=== PATIENT | female | born 1970 | race Caucasian/White ===

== ENCOUNTER 2016-08-26 02:03 | Emergency (ER) | payer OTHER ==
[~2016-08-26 02:03] MED LIST: ALPRAZOLAM0.5 MG PO; ASPIRIN81 MG PO; ATENOLOL50 MG PO; FLUOXETINE20 M3 PO; LEXAPRO10 MG PO
[2016-08-26 03:10] LABS: PLATELET COUNT 208 x10^3mcL (130-400); RED CELL DISTRIBUTION WIDTH 12.6 % (11.5-14.5)
[2016-08-26 03:20] LABS: UA SPECIFIC GRAVITY 1.015 (1.005-1.035); microscopic required? YES; urine erythrocyte TRACE (NEGATIVE)
[2016-08-26 03:26] LABS: BASOPHIL % 6.4 % (0-2)
[2016-08-26 03:45] LABS: CALCIUM 8.1 mg/dL (8.5-10.1); CARBON DIOXIDE 27.3 mmol/L (21-32); CHLORIDE SERUM 107 mmol/L (98-107); CREATININE SERUM 0.7 mg/dL (0.6-1.0); GFR1 > 60 mL/min; GLUCOSE SERUM 84 mg/dL (74-106); POTASSIUM SERUM 3.9 mmol/L (3.5-5.1); SODIUM SERUM 141 mmol/L (136-145)
[2016-08-26 03:49] LABS: ALBUMIN 3.4 g/dL (3.4-5.0); ALKALINE PHOSPHATASE 54 U/L (46-116); ALT/SGPT 14 U/L (14-59); AMYLASE 49 U/L (25-115); AST/SGOT 12 U/L (15-37); BILIRUBIN TOTAL 0.18 mg/dL (0.20-1.00); LIPASE 99 IU/L (73-393); TOTAL PROTEIN, SERUM 6.5 g/dL (6.4-8.2)
[2016-08-26 04:44] VITALS: BP 105/69
== END 2016-08-26 04:44 | disposition home or self-care (01) ==
LOC: ED 02:03
PROVIDERS: Emergency Medicine
DX: N39.0 Urinary tract infection, site not specified (principal); K59.00 Constipation, unspecified; M19.90 Unspecified osteoarthritis, unspecified site

== ENCOUNTER 2016-09-29 00:29 | Emergency (ER) | payer OTHER | END 2016-09-29 01:03 | disposition left against medical advice (07) | LOC: ED 00:29 | DX: Z53.21 Procedure and treatment not carried out due to patient leaving prior to being seen by health care provider (principal) ==

== ENCOUNTER 2016-11-10 05:55 | Emergency (ER) | payer OTHER ==
[2016-11-10 07:20] VITALS: BP 105/66
== END 2016-11-10 07:20 | disposition home or self-care (01) ==
LOC: ED 05:55
DX: R04.0 Epistaxis (principal); I10 Essential (primary) hypertension

== ENCOUNTER 2016-11-27 14:11 | Emergency (ER) | payer OTHER ==
[2016-11-27 15:14] LABS: BASOPHIL % 0.4 % (0-2); PLATELET COUNT 216 x10^3mcL (130-400); RED CELL DISTRIBUTION WIDTH 13.6 % (11.5-14.5)
[2016-11-27 15:30] LABS: CALCIUM 8.5 mg/dL (8.5-10.1); CARBON DIOXIDE 25.7 mmol/L (21-32); CHLORIDE SERUM 99 mmol/L (98-107); CREATININE SERUM 0.5 mg/dL (0.6-1.0); GFR1 > 60 mL/min; GLUCOSE SERUM 97 mg/dL (74-106); POTASSIUM SERUM 3.7 mmol/L (3.5-5.1); SODIUM SERUM 138 mmol/L (136-145)
[2016-11-27 15:32] LABS: ALKALINE PHOSPHATASE 58 U/L (46-116); ALT/SGPT 31 U/L (14-59); AST/SGOT 20 U/L (15-37); BILIRUBIN TOTAL 0.1 mg/dL (0.20-1.00); TOTAL PROTEIN, SERUM 6.6 g/dL (6.4-8.2)
[2016-11-27 15:33] LABS: ALBUMIN 3.3 g/dL (3.4-5.0)
[2016-11-27 16:50] VITALS: BP 105/60
== END 2016-11-27 16:50 | disposition home or self-care (01) ==
LOC: ED 14:11
PROVIDERS: Emergency Medicine
DX: R04.0 Epistaxis (principal); D64.9 Anemia, unspecified; J30.9 Allergic rhinitis, unspecified; F41.9 Anxiety disorder, unspecified; I47.1 Supraventricular tachycardia; M19.90 Unspecified osteoarthritis, unspecified site; Z79.82 Long term (current) use of aspirin; Z79.899 Other long term (current) drug therapy
CPT/HCPCS: 36415

== ENCOUNTER 2016-12-14 21:12 | Inpatient (IN) | payer OTHER ==
[~2016-12-14] VITALS: Ht 162.6 cm; Wt 72.1 kg
[2016-12-14] MEDS ORDERED: OMEPRAZOLE40 M1 PO (21:54)
[2016-12-14] MEDS ORDERED: CLONAZEPAM1 MG PO (21:54)
[2016-12-14 22:09] LABS: BASOPHIL % 0.6 % (0-2); PLATELET COUNT 280 x10^3mcL (130-400); RED CELL DISTRIBUTION WIDTH 13.7 % (11.5-14.5)
[2016-12-14 22:19] LABS: CALCIUM 8.4 mg/dL (8.5-10.1); CARBON DIOXIDE 23.5 mmol/L (21-32); CHLORIDE SERUM 107 mmol/L (98-107); CREATININE SERUM 0.7 mg/dL (0.6-1.0); GFR1 > 60 mL/min; GLUCOSE SERUM 101 mg/dL (74-106); POTASSIUM SERUM 3.9 mmol/L (3.5-5.1); SODIUM SERUM 142 mmol/L (136-145)
[2016-12-14 22:24] LABS: ALBUMIN 3.6 g/dL (3.4-5.0); ALKALINE PHOSPHATASE 64 U/L (46-116); ALT/SGPT 20 U/L (14-59); AST/SGOT 15 U/L (15-37); TOTAL PROTEIN, SERUM 7.7 g/dL (6.4-8.2)
[2016-12-14 22:35] LABS: CK-MB 0.8 ng/mL (0-3.6)
[2016-12-15 03:09] LABS: CHOLESTEROL/HDL RATIO 3.1; MAGNESIUM 2.1 mg/dL (1.8-2.4); PHOSPHOROUS 4.2 mg/dL (2.5-4.9)
[2016-12-15 03:16] LABS: T3 TOTAL 1.02 ng/mL
[2016-12-15 03:18] VITALS: BP 101/56
[2016-12-15 03:22] LABS: FREE T4 1.15 ng/dL (0.76-1.46); FREE THYROXINE INDEX 3.1 ug/dL (1.4-4.5); T4(THYROXINE) 9.1 ug/dL (4.7-13.3)
[2016-12-15 06:12] LABS: BASOPHIL % 0.7 % (0-2); PLATELET COUNT 240 x10^3mcL (130-400); RED CELL DISTRIBUTION WIDTH 14.1 % (11.5-14.5)
[2016-12-15 06:27] LABS: CALCIUM 8.5 mg/dL (8.5-10.1); CARBON DIOXIDE 22.8 mmol/L (21-32); CHLORIDE SERUM 109 mmol/L (98-107); CREATININE SERUM 0.7 mg/dL (0.6-1.0); GFR1 > 60 mL/min; GLUCOSE SERUM 88 mg/dL (74-106); POTASSIUM SERUM 4.1 mmol/L (3.5-5.1); SODIUM SERUM 142 mmol/L (136-145)
[2016-12-15 09:11] VITALS: BP 94/56
[2016-12-15 10:26] LABS: microscopic required? YES; urine erythrocyte 3+ (NEGATIVE)
[2016-12-15 13:17] VITALS: BP 98/53
[2016-12-15 16:30] VITALS: Ht 162.6 cm; Wt 72.1 kg
[2016-12-15 17:05] VITALS: BP 99/55
[2016-12-15 21:32] VITALS: BP 95/56
[2016-12-16 05:32] VITALS: BP 97/62
[2016-12-16 06:19] LABS: BASOPHIL % 0.8 % (0-2); PLATELET COUNT 195 x10^3mcL (130-400); RED CELL DISTRIBUTION WIDTH 14.1 % (11.5-14.5)
[2016-12-16 06:38] LABS: CALCIUM 7.9 mg/dL (8.5-10.1); CARBON DIOXIDE 21.2 mmol/L (21-32); CHLORIDE SERUM 113 mmol/L (98-107); CREATININE SERUM 0.7 mg/dL (0.6-1.0); GFR1 > 60 mL/min; GLUCOSE SERUM 88 mg/dL (74-106); POTASSIUM SERUM 3.9 mmol/L (3.5-5.1); SODIUM SERUM 145 mmol/L (136-145)
[2016-12-16 09:31] VITALS: BP 101/56
[2016-12-16 13:07] VITALS: BP 97/55
[2016-12-16 17:07] VITALS: BP 97/62
[2016-12-16 21:18] VITALS: BP 99/55
[2016-12-17 05:29] VITALS: BP 100/61
[2016-12-17 06:14] LABS: CARBON DIOXIDE 24.8 mmol/L (21-32); CHLORIDE SERUM 112 mmol/L (98-107); CREATININE SERUM 0.6 mg/dL (0.6-1.0); GFR1 > 60 mL/min; GLUCOSE SERUM 79 mg/dL (74-106); POTASSIUM SERUM 4.2 mmol/L (3.5-5.1); SODIUM SERUM 143 mmol/L (136-145)
[2016-12-17 08:25] VITALS: BP 98/59
[2016-12-17] MEDS ORDERED: BACTRIM DS1 TAB PO (11:00)
[2016-12-17 12:57] VITALS: BP 98/59
[2016-12-17 13:04] VITALS: BP 98/59
[2016-12-17] MEDS ORDERED: BACO TOP (14:19)
[2016-12-17] MEDS ORDERED: HIBICLENS118 ML TOP (14:19)
== END 2016-12-17 14:00 | disposition home or self-care (01) | DRG 243 ==
LOC: ED 21:12 → DU 12-15 02:15
PROVIDERS: Emergency Medicine; Family Medicine; ADMIT Student in an Organized Health Care Education/Training Program
DX: K21.9 Gastro-esophageal reflux disease without esophagitis (principal); E87.8 Other disorders of electrolyte and fluid balance, not elsewhere classified; I47.1 Supraventricular tachycardia; D64.9 Anemia, unspecified; S01.81XA Laceration without foreign body of other part of head, initial encounter; N39.0 Urinary tract infection, site not specified; F32.9 Major depressive disorder, single episode, unspecified; G89.29 Other chronic pain; M54.9 Dorsalgia, unspecified; W01.0XXA Fall on same level from slipping, tripping and stumbling without subsequent striking against object, initial encounter; F41.9 Anxiety disorder, unspecified; M19.90 Unspecified osteoarthritis, unspecified site; Z79.82 Long term (current) use of aspirin; Z68.27 Body mass index [BMI] 27.0-27.9, adult; Y93.89 Activity, other specified; Y92.89 Other specified places as the place of occurrence of the external cause; Y99.8 Other external cause status; Z95.1 Presence of aortocoronary bypass graft; Z79.899 Other long term (current) drug therapy; Z82.49 Family history of ischemic heart disease and other diseases of the circulatory system
CPT/HCPCS: 83880; 84439; J0696; J2270; J2405; J7030; Q0092

== ENCOUNTER 2017-01-28 11:58 | Emergency (ER) | payer OTHER ==
[~2017-01-28] VITALS: Ht 162.6 cm; Wt 68.0 kg
[~2017-01-28 11:58] MED LIST changes: +BACO TOP; +BACTRIM DS1 TAB PO; +CLONAZEPAM1 MG PO; +HIBICLENS118 ML TOP; +OMEPRAZOLE40 M1 PO
[2017-01-28 12:43] LABS: BASOPHIL % 0.3 % (0-2); PLATELET COUNT 276 x10^3mcL (130-400)
[2017-01-28 12:52] LABS: CALCIUM 8.8 mg/dL (8.5-10.1); CARBON DIOXIDE 27.8 mmol/L (21-32); CHLORIDE SERUM 106 mmol/L (98-107); CREATININE SERUM 0.8 mg/dL (0.6-1.0); GFR1 > 60 mL/min; GLUCOSE SERUM 86 mg/dL (74-106); POTASSIUM SERUM 3.9 mmol/L (3.5-5.1); RED CELL DISTRIBUTION WIDTH 14.9 % (11.5-14.5); SODIUM SERUM 140 mmol/L (136-145)
[2017-01-28 12:59] LABS: ALBUMIN 3.5 g/dL (3.4-5.0); ALKALINE PHOSPHATASE 60 U/L (46-116); ALT/SGPT 17 U/L (14-59); AST/SGOT 12 U/L (15-37); BILIRUBIN TOTAL 0.2 mg/dL (0.20-1.00); TOTAL PROTEIN, SERUM 7.5 g/dL (6.4-8.2)
[2017-01-28 13:21] LABS: AMPHETAMINE QUAL UR NONE DETECTED (NEG <=1000)
[2017-01-28 16:03] VITALS: BP 110/64
== END 2017-01-28 16:04 | disposition home or self-care (01) ==
LOC: ED 11:58
PROVIDERS: Emergency Medicine
DX: R45.851 Suicidal ideations (principal); I10 Essential (primary) hypertension; M19.90 Unspecified osteoarthritis, unspecified site
CPT/HCPCS: 36415; G0480

== ENCOUNTER 2017-05-13 01:17 | Emergency (ER) | payer OTHER ==
[2017-05-13 01:18] VITALS: BP 99/77
== END 2017-05-13 03:50 | disposition left against medical advice (07) ==
LOC: ED 01:17
DX: Z53.21 Procedure and treatment not carried out due to patient leaving prior to being seen by health care provider (principal)

== ENCOUNTER 2017-05-25 04:02 | Emergency (ER) | payer OTHER ==
[2017-05-25 06:46] VITALS: BP 100/89
== END 2017-05-25 06:46 | disposition home or self-care (01) ==
LOC: ED 04:02
DX: J20.9 Acute bronchitis, unspecified (principal); I10 Essential (primary) hypertension; M19.90 Unspecified osteoarthritis, unspecified site; Z95.1 Presence of aortocoronary bypass graft

== ENCOUNTER 2017-06-06 04:04 | Emergency (ER) | payer OTHER ==
[~2017-06-06] VITALS: Ht 160 cm; Wt 68.7 kg
[2017-06-06 04:17] VITALS: Ht 160 cm; Wt 68.7 kg
[2017-06-06 05:20] LABS: BASOPHIL % 0.4 % (0-2); PLATELET COUNT 304 x10^3mcL (130-400)
[2017-06-06 05:24] LABS: RED CELL DISTRIBUTION WIDTH 14.6 % (11.5-14.5)
[2017-06-06 05:28] LABS: CALCIUM 8.5 mg/dL (8.5-10.1); CARBON DIOXIDE 30.1 mmol/L (21-32); CHLORIDE SERUM 102 mmol/L (98-107); CREATININE SERUM 0.7 mg/dL (0.6-1.0); GFR1 > 60 mL/min; GLUCOSE SERUM 106 mg/dL (74-106); POTASSIUM SERUM 3.7 mmol/L (3.5-5.1); SODIUM SERUM 139 mmol/L (136-145)
[2017-06-06 05:33] LABS: ALBUMIN 3.2 g/dL (3.4-5.0); ALKALINE PHOSPHATASE 62 U/L (46-116); ALT/SGPT 16 U/L (14-59); AST/SGOT 12 U/L (15-37); BILIRUBIN TOTAL 0.19 mg/dL (0.20-1.00); LIPASE 73 IU/L (73-393)
[2017-06-06 06:18] VITALS: BP 109/65
== END 2017-06-06 07:10 | disposition home or self-care (01) ==
LOC: ED 04:04
PROVIDERS: Emergency Medicine
DX: R10.9 Unspecified abdominal pain (principal); R11.0 Nausea; I10 Essential (primary) hypertension; M19.90 Unspecified osteoarthritis, unspecified site; G89.29 Other chronic pain
CPT/HCPCS: J1170; J1200; J2405; J2765; J7030

== ENCOUNTER 2017-08-22 01:58 | Emergency (ER) | payer OTHER ==
[~2017-08-22] VITALS: Ht 160 cm; Wt 68.7 kg
[2017-08-22 02:07] VITALS: Ht 160 cm; Wt 68.7 kg
[2017-08-22 05:09] VITALS: BP 115/64
== END 2017-08-22 05:09 | disposition home or self-care (01) ==
LOC: ED 01:58
DX: R51 Headache (principal); I10 Essential (primary) hypertension; M19.90 Unspecified osteoarthritis, unspecified site
CPT/HCPCS: J0780; J1200; J1885; J7030

== ENCOUNTER 2017-11-25 01:03 | Emergency (ER) | payer OTHER ==
[~2017-11-25] VITALS: Ht 160 cm; Wt 69.4 kg
[2017-11-25 01:21] VITALS: BP 117/78; Ht 160 cm; Wt 69.4 kg
== END 2017-11-25 02:40 | disposition home or self-care (01) ==
LOC: ED 01:03
DX: G89.29 Other chronic pain (principal); I10 Essential (primary) hypertension

== ENCOUNTER 2018-02-10 16:17 | Emergency (ER) | payer OTHER ==
[2018-02-10 17:15] LABS: PLATELET COUNT 281 x10^3mcL (130-400)
[2018-02-10 17:16] LABS: RED CELL DISTRIBUTION WIDTH 16.5 % (11.5-14.5)
[2018-02-10 17:25] LABS: CALCIUM 8.4 mg/dL (8.5-10.1); CHLORIDE SERUM 107 mmol/L (98-107); CREATININE SERUM 0.7 mg/dL (0.6-1.0); GFR1 > 60 mL/min; GLUCOSE SERUM 89 mg/dL (74-106); POTASSIUM SERUM 3.4 mmol/L (3.5-5.1); SODIUM SERUM 140 mmol/L (136-145)
[2018-02-10 17:30] LABS: ALKALINE PHOSPHATASE 66 U/L (46-116); ALT/SGPT 16 U/L (14-59); AST/SGOT 16 U/L (15-37); BILIRUBIN TOTAL 0.15 mg/dL (0.20-1.00); TOTAL PROTEIN, SERUM 7.4 g/dL (6.4-8.2)
[2018-02-10 17:35] LABS: ALBUMIN 3.2 g/dL (3.4-5.0)
[2018-02-10 18:00] VITALS: BP 109/69
== END 2018-02-10 18:36 | disposition home or self-care (01) ==
LOC: ED 16:17
PROVIDERS: Emergency Medicine
DX: N93.8 Other specified abnormal uterine and vaginal bleeding (principal); D25.9 Leiomyoma of uterus, unspecified; D64.9 Anemia, unspecified; I49.9 Cardiac arrhythmia, unspecified; I10 Essential (primary) hypertension; F41.9 Anxiety disorder, unspecified; Z98.890 Other specified postprocedural states
CPT/HCPCS: 36415; Q0092

== ENCOUNTER 2018-04-07 02:01 | Emergency (ER) | payer OTHER ==
[~2018-04-07] VITALS: Ht 157.5 cm; Wt 71.2 kg
[2018-04-07 02:15] VITALS: Ht 157.5 cm; Wt 71.2 kg
[2018-04-07 04:49] VITALS: BP 119/76
== END 2018-04-07 04:49 | disposition home or self-care (01) ==
LOC: ED 02:01
DX: M51.36 Other intervertebral disc degeneration, lumbar region (principal); I10 Essential (primary) hypertension; F41.9 Anxiety disorder, unspecified; M19.90 Unspecified osteoarthritis, unspecified site; F32.9 Major depressive disorder, single episode, unspecified; Z86.2 Personal history of diseases of the blood and blood-forming organs and certain disorders involving the immune mechanism; Z98.890 Other specified postprocedural states
CPT/HCPCS: J1885; J2060; J2270

== ENCOUNTER 2018-07-11 01:11 | Inpatient (IN) | payer OTHER ==
[~2018-07-11] VITALS: Ht 162.6 cm; Wt 72.1 kg
[2018-07-11 01:17] VITALS: Ht 162.6 cm; Wt 72.1 kg
--- NOTE | 2018-07-11 01:26 | NUR ---
PT. IN ED WITH C/O UPPER BACK PAIN OFF AND ON X3WKS. STATES SHE STARTED FEELING SOB AND HAVING TINGLING TO LEFT ARM SINCE YESTERDAY. REPORTS UPPER BACK PAIN IS WORSE WHEN EXERCISING. ALSO, REPORTS FEELING DIZZY AND DIAPHORETIC YESTERDAY. PT. AAOX4, TALKING AND RESPONDING APPROPRIATELY, BREATHING EQUAL AND UNLABORED. DR. EAST AT BEDSIDE TO PERFORM MSE.
--- NOTE | 2018-07-11 01:52 | NUR ---
PT. AMBUALTED TO RESTROOM WITH STEADY GAIT.
--- NOTE | 2018-07-11 02:01 | NUR ---
PT. INFORMED OF THE SIDE EFFECTS OF NORCO INCLUDING FEELING DROWSY, STATES HER WILL DRIVE HER HOME.
[2018-07-11 02:06] LABS: CALCIUM 8.6 mg/dL (8.5-10.1); CARBON DIOXIDE 22.8 mmol/L (21-32); CHLORIDE SERUM 105 mmol/L (98-107); CREATININE SERUM 0.6 mg/dL (0.6-1.0); GFR1 > 60 mL/min; GLUCOSE SERUM 91 mg/dL (74-106); POTASSIUM SERUM 3.5 mmol/L (3.5-5.1); SODIUM SERUM 139 mmol/L (136-145)
[2018-07-11 02:12] LABS: ALBUMIN 3.4 g/dL (3.4-5.0); ALKALINE PHOSPHATASE 65 U/L (46-116); ALT/SGPT 18 U/L (14-59); AST/SGOT 14 U/L (15-37); BILIRUBIN TOTAL 0.15 mg/dL (0.20-1.00); LIPASE 113 IU/L (73-393); TOTAL PROTEIN, SERUM 7.4 g/dL (6.4-8.2)
--- NOTE | 2018-07-11 02:43 | NUR ---
PT. REPORTS BACK PAIN IS 6/10 AFTER NORCO. LAYING ON GURNEY IN POSITION OF COMFORT, NOT IN ANY APPARENT DISTRES. WILL CONTINUE TO MONITOR.
[2018-07-11 02:48] LABS: BASOPHIL % 0.5 % (0-2); PLATELET COUNT 280 x10^3mcL (130-400)
[2018-07-11 02:59] LABS: RED CELL DISTRIBUTION WIDTH 17.9 % (11.5-14.5)
--- NOTE | 2018-07-11 04:40 | NUR ---
PT. LAYING ON GURNEY IN POSITION OF COMFORT, SKIN WARM, DRY AND PINK. BREATHING E/U. NOT IN ANY APPARENT DISTRESS. FAMILY AT BEDSIDE.
--- NOTE | 2018-07-11 06:00 | NUR ---
PT. SITTING UP IN [facility], NOT IN ANY APPARENT DISTRESS AT THIS TIME. CALL LIGHT IN REACH. WILL CONTINUE TO MONITOR.
--- NOTE | 2018-07-11 07:15 | NUR ---
REPORT GIVEN TO GAYE HOWARD FOR FURTHER CARE OF PATIENT. ALL QUESTIONS ANSWERED.
[2018-07-11] MEDS ORDERED: TOPROL XL25 MG PO (07:34)
[2018-07-11] MEDS ORDERED: CLONAZEPAM0.5 MG PO ×2 (07:34→07:35)
[2018-07-11] MEDS ORDERED: PRILOSEC OTC20 M1 PO (07:35)
[2018-07-11 07:51] LABS: T3 TOTAL 1.3 ng/mL
[2018-07-11 07:56] LABS: CHOLESTEROL/HDL RATIO 3.6; MAGNESIUM 2.2 mg/dL (1.8-2.4); PHOSPHOROUS 4.4 mg/dL (2.5-4.9)
--- NOTE | 2018-07-11 08:00 | NUR ---
REPORT GIVEN TO EMILIE HOWARD
[2018-07-11 08:01] LABS: FREE T4 0.87 ng/dL (0.76-1.46); FREE THYROXINE INDEX 2.4 ug/dL (1.4-4.5); T4(THYROXINE) 7.9 ug/dL (4.7-13.3)
--- NOTE | 2018-07-11 08:44 | NUR ---
RECEIVED PT FROM ER. ADMISSION ASSESSEMENT AND HISTORY IS COLLECTED AND WILL DOCUMENT. PT STATED BACK PAIN,11/17. NO NUMBNESS OR TINGLING THIS TIME. WILL MEDICATE PT WITH PRN PAIN MED NATY AVAILABLE. SAFTEY PRECAUTIONS ARE IN PLACE. WILL MONITOR.
--- NOTE | 2018-07-11 10:12 | NUR ---
PT RESTING IN BED COMFORTABLY. DENIES ANY PAIN THIS TIME. STABLE.
[2018-07-11 10:24] VITALS: BP 113/68
[2018-07-11 11:24] VITALS: BP 103/60
[2018-07-11 14:24] VITALS: BP 112/63
[2018-07-11] MEDS ORDERED: PREDNISONE50 MG PO (15:26)
--- NOTE | 2018-07-11 15:30 | NUR ---
AWARE ABOUT CT RESULTS AND HE SAID HE IS GOING TO DISCHARGE PT, HE SPOKE WITH PT ABOUT DISCHARGE. PT IS STABLE. DENIES PAIN THIS TIME. PT SAID SHE TAKES NORCO AT HOME IF SHE HAS PAIN. SAID HE IS NOT GOING TO GIVE ANYMORE PAIN MED TO TAKE AT HOME, ALSO HE SAID PT CAN TAKE MOTRIN OR TYLENOL PO AT HOME, PT IS AWARE.
[2018-07-11 16:42] VITALS: BP 112/63
--- NOTE | 2018-07-11 17:55 | NUR ---
PT'S SON CAME TO [employer] ATTENDANT PT. DISCHARGE INSTRUCTIONS AND PRESCRIPTION GIVEN. PB SIGNED AND SENT WITH PT. IV AND TELE REMOVED. PT DENIES PAIN. PROJECT MANAGEMENT PROFESSIONAL WHEELED PT DOWN TO LOBBY ACCOMPANIED WITH PT'S SON. PT DC HOME.
== END 2018-07-11 18:19 | disposition home or self-care (01) | DRG 144 ==
LOC: ED 01:11 → DU 06:36
PROVIDERS: Emergency Medicine; ADMIT General Practice
DX: R06.03 Acute respiratory distress (principal); M41.84 Other forms of scoliosis, thoracic region; M54.9 Dorsalgia, unspecified; E78.5 Hyperlipidemia, unspecified; F32.9 Major depressive disorder, single episode, unspecified; F41.9 Anxiety disorder, unspecified; I10 Essential (primary) hypertension; G89.29 Other chronic pain; Z82.49 Family history of ischemic heart disease and other diseases of the circulatory system; Z79.899 Other long term (current) drug therapy
CPT/HCPCS: 84439; 85378; J2270; J2405; J7030; J7620; Q0092

== ENCOUNTER 2019-01-04 03:16 | Emergency (ER) | payer OTHER ==
[~2019-01-04] VITALS: Ht 160 cm; Wt 67.1 kg
[~2019-01-04 03:16] MED LIST changes: +CLONAZEPAM0.5 MG PO; +PREDNISONE50 MG PO; +PRILOSEC OTC20 M1 PO; +TOPROL XL25 MG PO
[2019-01-04 03:18] VITALS: Ht 160 cm; Wt 67.1 kg
[2019-01-04 05:17] LABS: BASOPHIL % 0.5 % (0-2); PLATELET COUNT 262 x10^3mcL (130-400)
[2019-01-04 05:19] LABS: RED CELL DISTRIBUTION WIDTH 16.9 % (11.5-14.5)
[2019-01-04 05:21] LABS: CALCIUM 8.1 mg/dL (8.5-10.1); CARBON DIOXIDE 24.3 mmol/L (21-32); CHLORIDE SERUM 101 mmol/L (98-107); CREATININE SERUM 0.7 mg/dL (0.6-1.0); GFR1 > 60 mL/min; GLUCOSE SERUM 99 mg/dL (74-106); POTASSIUM SERUM 3.8 mmol/L (3.5-5.1); SODIUM SERUM 137 mmol/L (136-145)
[2019-01-04 05:23] LABS: ALBUMIN 3.5 g/dL (3.4-5.0); ALKALINE PHOSPHATASE 61 U/L (46-116); ALT/SGPT 23 U/L (14-59); AMYLASE 48 U/L (25-115); AST/SGOT 15 U/L (15-37); BILIRUBIN TOTAL 0.4 mg/dL (0.20-1.00); LIPASE 76 IU/L (73-393); TOTAL PROTEIN, SERUM 7.6 g/dL (6.4-8.2)
[2019-01-04 07:32] VITALS: BP 121/79
== END 2019-01-04 07:32 | disposition home or self-care (01) ==
LOC: ED 03:16
PROVIDERS: Emergency Medicine
DX: K57.30 Diverticulosis of large intestine without perforation or abscess without bleeding (principal); I10 Essential (primary) hypertension; I49.9 Cardiac arrhythmia, unspecified; F41.9 Anxiety disorder, unspecified; F32.9 Major depressive disorder, single episode, unspecified; Z98.890 Other specified postprocedural states; Z86.2 Personal history of diseases of the blood and blood-forming organs and certain disorders involving the immune mechanism
CPT/HCPCS: J2405; J7030

== ENCOUNTER 2019-02-26 01:26 | Emergency (ER) | payer OTHER ==
[~2019-02-26] VITALS: Ht 160 cm; Wt 71.2 kg
[2019-02-26 01:39] VITALS: Ht 160 cm; Wt 71.2 kg
[2019-02-26 02:29] LABS: BASOPHIL % 0.6 % (0-2); PLATELET COUNT 240 x10^3mcL (130-400)
[2019-02-26 02:35] LABS: RED CELL DISTRIBUTION WIDTH 18.2 % (11.5-14.5)
[2019-02-26 02:52] LABS: CALCIUM 8.4 mg/dL (8.5-10.1); CARBON DIOXIDE 23.9 mmol/L (21-32); CHLORIDE SERUM 107 mmol/L (98-107); CREATININE SERUM 0.7 mg/dL (0.6-1.0); GFR1 > 60 mL/min; GLUCOSE SERUM 97 mg/dL (74-106); SODIUM SERUM 140 mmol/L (136-145)
[2019-02-26 02:57] LABS: ALKALINE PHOSPHATASE 74 U/L (46-116); ALT/SGPT 16 U/L (14-59); AMYLASE 40 U/L (25-115); AST/SGOT 17 U/L (15-37); BILIRUBIN TOTAL 0.22 mg/dL (0.20-1.00); LIPASE 59 IU/L (73-393); TOTAL PROTEIN, SERUM 7.2 g/dL (6.4-8.2)
[2019-02-26 03:01] LABS: ALBUMIN 3.1 g/dL (3.4-5.0)
[2019-02-26 07:17] VITALS: BP 134/78
== END 2019-02-26 07:17 | disposition home or self-care (01) ==
LOC: ED 01:26
PROVIDERS: Student in an Organized Health Care Education/Training Program
DX: K57.92 Diverticulitis of intestine, part unspecified, without perforation or abscess without bleeding (principal)
CPT/HCPCS: J2270; J2405; Q9967

== ENCOUNTER 2019-09-07 00:06 | Emergency (ER) | payer OTHER ==
[~2019-09-07] VITALS: Ht 170.2 cm; Wt 71.7 kg
[2019-09-07 01:18] VITALS: BP 101/70
== END 2019-09-07 01:18 | disposition home or self-care (01) ==
LOC: ED 00:06
DX: M54.6 Pain in thoracic spine (principal); M54.5 Low back pain; G89.29 Other chronic pain; I10 Essential (primary) hypertension; I49.9 Cardiac arrhythmia, unspecified; Z86.2 Personal history of diseases of the blood and blood-forming organs and certain disorders involving the immune mechanism; Z98.890 Other specified postprocedural states
CPT/HCPCS: J1885; Q0092

== ENCOUNTER 2019-11-05 23:54 | Inpatient (IN) | payer OTHER ==
[~2019-11-05] VITALS: Ht 157.5 cm; Wt 73.0 kg
[2019-11-06 00:05] VITALS: Ht 157.5 cm; Wt 73.0 kg
[2019-11-06 00:16] LABS: BASOPHIL % 0.5 % (0-2); PLATELET COUNT 258 x10^3mcL (130-400)
[2019-11-06 00:20] LABS: RED CELL DISTRIBUTION WIDTH 17.6 % (11.5-14.5)
[2019-11-06 00:34] LABS: CALCIUM 7.7 mg/dL (8.5-10.1); CARBON DIOXIDE 23.8 mmol/L (21-32); CHLORIDE SERUM 106 mmol/L (98-107); CREATININE SERUM 0.6 mg/dL (0.6-1.0); GFR1 > 60 mL/min; GLUCOSE SERUM 109 mg/dL (74-106); POTASSIUM SERUM 3.6 mmol/L (3.5-5.1); SODIUM SERUM 137 mmol/L (136-145)
[2019-11-06 00:38] LABS: ALBUMIN 3.1 g/dL (3.4-5.0); ALT/SGPT 15 U/L (14-59); AST/SGOT 14 U/L (15-37); BILIRUBIN TOTAL 0.2 mg/dL (0.20-1.00); TOTAL PROTEIN, SERUM 6.6 g/dL (6.4-8.2)
[2019-11-06 01:17] LABS: ALKALINE PHOSPHATASE 70 U/L (46-116)
[2019-11-06] MEDS ORDERED: BANOPHEN50 MG PO (04:30)
[2019-11-06 06:07] VITALS: BP 108/66
[2019-11-06 08:37] VITALS: BP 101/67
[2019-11-06 09:26] LABS: MAGNESIUM 1.9 mg/dL (1.8-2.4)
[2019-11-06 12:41] VITALS: BP 102/63
[2019-11-06 16:36] VITALS: BP 105/65
== END 2019-11-06 16:54 | disposition home or self-care (01) | DRG 203 ==
LOC: ED 23:54 → DU 11-06 04:28
PROVIDERS: Emergency Medicine; ADMIT Internal Medicine Pulmonary Disease; ATTEND Internal Medicine Pulmonary Disease
DX: R07.89 Other chest pain (principal); D64.9 Anemia, unspecified; F32.9 Major depressive disorder, single episode, unspecified; F41.9 Anxiety disorder, unspecified; I10 Essential (primary) hypertension; F29 Unspecified psychosis not due to a substance or known physiological condition; M19.90 Unspecified osteoarthritis, unspecified site
CPT/HCPCS: 36600; 83880; G0378; J1885; J2270; Q0092

== ENCOUNTER 2019-11-25 00:58 | Emergency (ER) | payer OTHER ==
[~2019-11-25] VITALS: Ht 157.5 cm; Wt 70.8 kg
[~2019-11-25 00:58] MED LIST changes: +BANOPHEN50 MG PO
[2019-11-25 01:38] LABS: BASOPHIL % 1.4 % (0-2); PLATELET COUNT 331 x10^3mcL (130-400)
[2019-11-25 01:39] LABS: RED CELL DISTRIBUTION WIDTH 15.9 % (11.5-14.5)
[2019-11-25 01:46] LABS: CALCIUM 8.4 mg/dL (8.5-10.1); CARBON DIOXIDE 23.2 mmol/L (21-32); CHLORIDE SERUM 107 mmol/L (98-107); CREATININE SERUM 0.9 mg/dL (0.6-1.0); GFR1 > 60 mL/min; GLUCOSE SERUM 100 mg/dL (74-106); POTASSIUM SERUM 3.9 mmol/L (3.5-5.1); SODIUM SERUM 140 mmol/L (136-145)
[2019-11-25 01:50] LABS: ALKALINE PHOSPHATASE 72 U/L (46-116); ALT/SGPT 43 U/L (14-59); AST/SGOT 20 U/L (15-37); BILIRUBIN TOTAL 0.17 mg/dL (0.20-1.00); TOTAL PROTEIN, SERUM 6.6 g/dL (6.4-8.2)
[2019-11-25 01:53] LABS: ALBUMIN 3.1 g/dL (3.4-5.0)
[2019-11-25 05:10] VITALS: BP 102/57
== END 2019-11-25 05:15 | disposition home or self-care (01) ==
LOC: ED 00:58
PROVIDERS: Emergency Medicine
DX: R07.89 Other chest pain (principal); I10 Essential (primary) hypertension; M19.90 Unspecified osteoarthritis, unspecified site; Z98.890 Other specified postprocedural states
CPT/HCPCS: Q0092

== ENCOUNTER 2020-02-16 05:09 | Emergency (ER) | payer OTHER ==
[~2020-02-16] VITALS: Ht 157.5 cm; Wt 70.8 kg
[2020-02-16 05:16] VITALS: Ht 157.5 cm; Wt 70.8 kg
[2020-02-16 08:01] VITALS: BP 120/75
== END 2020-02-16 08:01 | disposition home or self-care (01) ==
LOC: ED 05:09
DX: K04.7 Periapical abscess without sinus (principal); K02.9 Dental caries, unspecified; I10 Essential (primary) hypertension; M19.90 Unspecified osteoarthritis, unspecified site; Z86.2 Personal history of diseases of the blood and blood-forming organs and certain disorders involving the immune mechanism; Z98.890 Other specified postprocedural states; Z87.19 Personal history of other diseases of the digestive system